=== PATIENT | female | born 1975 | race Caucasian/White ===

== ENCOUNTER → 2016-05-27 | Outpatient (CLI) | payer OTHER | END | disposition home or self-care (01) | LOC: CARD 12:43 | PROVIDERS: ATTEND Internal Medicine Cardiovascular Disease | DX: R06.02 Shortness of breath (principal) | CPT/HCPCS: 94060; 94726; 94729 ==

== ENCOUNTER 2019-05-03 21:09 | Emergency (ER) | payer OTHER ==
[~2019-05-03] VITALS: Ht 142.2 cm; Wt 98.5 kg
[2019-05-03 21:14] VITALS: BP 138/70
--- NOTE | 2019-05-03 21:22 | NUR ---
PT AMBULATED BACK TO ROOM WITHOUT DIFFICULTY.
--- NOTE | 2019-05-03 21:58 | NUR ---
REPORTED TO WILLIAM FERNANDEZ. PT UNDERSTANDS POC.
--- NOTE | 2019-05-03 22:35 | NUR ---
Pt told RN that urine has drained approx 400ml since initial RN flushed catheter. Spoke with MD whom stated catheter can remain in place. Urine sample collected and sent. Pt agreeable to keeping current catheter in.
[2019-05-03 22:56] LABS: CULTURE INDICATED? YES; MICROSCOPIC INDICATED
--- NOTE | 2019-05-03 23:03 | NUR ---
Report to REBECCA Rahman Awaiting urine results
[2019-05-03] MEDS ORDERED: CIPROFLOXACIN 500 MG TABLET PO ONE (23:30)
[2019-05-03] MEDS ORDERED: CIPROFLOXACIN 500 MG TABLET ONE (23:39)
== END 2019-05-04 00:11 | disposition home or self-care (01) ==
LOC: ED 22:09
DX: N30.01 Acute cystitis with hematuria (principal); Z90.710 Acquired absence of both cervix and uterus
CPT/HCPCS: 81001; 87077; 87086; 87186; 99283

== ENCOUNTER 2019-05-04 02:21 | Emergency (ER) | payer OTHER ==
[~2019-05-04] VITALS: Ht 142.2 cm; Wt 96.6 kg
[2019-05-04 02:23] VITALS: BP 149/82
== END 2019-05-04 04:06 | disposition home or self-care (01) ==
LOC: ED 03:05
DX: T83.098A Other mechanical complication of other urinary catheter, initial encounter (principal); Z90.710 Acquired absence of both cervix and uterus
CPT/HCPCS: 51702; 99284

== ENCOUNTER 2020-09-25 14:38 | Emergency (ER) | payer OTHER ==
[~2020-09-25] VITALS: Ht 142.2 cm; Wt 105.0 kg
--- NOTE | 2020-09-25 14:42 | NUR ---
PT BIBA FROM HOME FOR C/O SUBSTERNAL CP THAT STARTED LAST NIGHT AROUND MIDNIGHT. PT STATES THE PAIN IS A BURNING SENSATION, 5/10 THAT DOES NOT RADIATE. PT DENIES SOB BUT STATES SHE FEEL NAUSEOUS. PT TOOK 324 [facility] PRIOR TO EMS ARRIVAL. PT AMBULATORY TO ROOM, CHANGED INTO GOWN, ALL MONITORS IN PLACE, CALL LIGHT WITHIN REACH, BED IN LOWEST POSITION, BED RAILS UP X2.
--- NOTE | 2020-09-25 14:48 | NUR ---
ERP AT BS FOR EVAL
--- NOTE | 2020-09-25 14:57 | NUR ---
XRAY AT BS
[2020-09-25] MEDS ORDERED: MAALOX/HYOSCYAMINE/LIDOCAINE 45 ML BTL ONE (14:58)
[2020-09-25] MEDS ORDERED: MAALOX/HYOSCYAMINE/LIDOCAINE 45 ML BTL PO ONE (15:00)
[2020-09-25 15:24] LABS: BASOPHILS % (AUTO) 1 % (0-1); EOSINOPHILS % (AUTO) 0 % (1-7); LYMPHOCYTES % (AUTO) 17 % (22-44); MEAN CORPUSCULAR HEMOGLOBIN 25.3 pg (27.0-34.8); MEAN CORPUSCULAR HGB CONC 32.3 g/dL (32.4-35.8); MEAN PLATELET VOLUME 7.5 fL (7.4-10.4); MONOCYTES % (AUTO) 3 % (2-9); NEUTROPHILS % (AUTO) 79 % (42-75); PLATELET COUNT 391 x10^3/uL (130-400); RED BLOOD COUNT 4.92 x10^6/uL (3.82-5.3); RED CELL DISTRIBUTION WIDTH 14.9 % (9.6-15.2)
[2020-09-25 15:30] LABS: ALANINE AMINOTRANSFERASE 21 U/L (12-78); ALBUMIN 3.3 g/dL (3.4-5.0); ANION GAP 5 mmol/L (5-15); CALCIUM 10.7 mg/dL (8.5-10.1); CHLORIDE 102 mmol/L (98-107); CREATININE 0.83 mg/dL (0.55-1.02)
[2020-09-25 15:34] LABS: ALKALINE PHOSPHATASE 106 U/L (45-117); BILIRUBIN,TOTAL 0.2 mg/dL (0.2-1.0); TOTAL PROTEIN 8.1 g/dL (6.4-8.2); TROPONIN I < 0.015 ng/mL (0.000-0.045)
[2020-09-25 16:43] VITALS: BP 123/61
--- NOTE | 2020-09-25 17:05 | NUR ---
ERP AT FOR RECHECK
--- NOTE | 2020-09-25 17:39 | NUR ---
Patient given discharge instructions and RX, they have confirmed that they understand the instructions. Patient ambulatory with steady gait.
== END 2020-09-25 17:41 | disposition home or self-care (01) ==
LOC: ED 16:27
DX: K29.00 Acute gastritis without bleeding (principal); R10.10 Upper abdominal pain, unspecified; R07.89 Other chest pain; Z90.710 Acquired absence of both cervix and uterus
CPT/HCPCS: 36415; 71045; 80053; 83690; 83880; 84484; 85025; 93005; 99285